=== PATIENT | female | born 1970 | race Caucasian/White ===

== ENCOUNTER 2017-01-20 18:50 | Emergency (ER) | payer OTHER ==
[~2017-01-20] VITALS: Ht 160 cm; Wt 81.8 kg
[2017-01-20 19:00] VITALS: BP 123/80; PULSE 95; RESP 16; O2SAT 96
[2017-01-20] MEDS ORDERED: ESCI10TA3 PO (19:02)
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
== END 2017-01-20 20:20 | disposition home or self-care (01) ==
LOC: SED 18:50
DX: S16.1XXA Strain of muscle, fascia and tendon at neck level, initial encounter (principal); V53.5XXA Driver of pick-up truck or van injured in collision with car, pick-up truck or van in traffic accident, initial encounter; Y93.89 Activity, other specified; Y92.410 Unspecified street and highway as the place of occurrence of the external cause; Y99.8 Other external cause status; R51 Headache